=== PATIENT | male | born 1985 | race Caucasian/White ===

== ENCOUNTER 2018-02-17 00:46 | Emergency (ER) | payer OTHER ==
[2018-02-17 01:28] LABS: PLATELET COUNT 226 10^3/uL (150-400)
--- NOTE | 2018-02-17 01:31 | EDPHY ---
H & P Stated Complaint: DIZZINESS PASSED OUT AFTER SMOKING SOME MJ,WAS ADJUSTING NECK Time Seen by Provider: 02/17/18 00:57 HPI/ROS: HPI The patient presents with an episode of ALOC which occurred just prior to arrival. The patient was smoking marijuana and cigarettes tonight. He was sitting outside. He stood to go inside and experience some neck pain. He then began to feel dizzy and lost consciousness. He was diaphoretic 1st though now is feeling much better. He has had 1 prior fainting episode in his life which occurred when he saw blood. He says he has had neck pain for the last several days and has an appointment with a chiropractor. He thinks he slept funny on his neck. The pain is aching, left-sided, worse with movement of his neck. He does not have any numbness tingling or weakness of his hands.. REVIEW OF SYSTEMS 10 systems were reviewed and negative with the exception of the elements mentioned in the history of present illness. PMHx: Anxiety Soc Hx: Marijuana use PHYSICAL General Appearance: Alert, no distress Eyes: Pupils equal and round no pallor or injection ENT, Mouth: Mucous membranes moist Respiratory: There are no retractions, lungs are clear to auscultation Cardiovascular: Regular rate and rhythm , no murmur Gastrointestinal: Abdomen is soft and non-tender, no masses, bowel sounds normal Neurological: A&O, moves all extremities Skin: Warm and dry, no rashes Musculoskeletal: Neck is supple non tender Extremities: symmetrical, full range of motion Psychiatric: Patient is oriented X 3, there is no agitation Source: Patient Exam Limitations: No limitations - Personal History Current Tetanus/Diphtheria Vaccine: Yes Current Tetanus Diphtheria and Acellular Pertussis (TDAP): Yes - Medical/Surgical History Hx Asthma: No Hx Chronic Respiratory Disease: No Hx Diabetes: No Hx Cardiac Disease: No Hx Renal Disease: No Hx Cirrhosis: No Hx Alcoholism: No Hx HIV/AIDS: No Hx Splenectomy or Spleen Trauma: No Other PMH: ANXIETY - Social History Smoking Status: Current every day smoker Constitutional: Initial Vital Signs Temperature (C) 36.7 C 02/17/18 00:47 Heart Rate 68 02/17/18 00:47 Respiratory Rate 18 02/17/18 00:47 Blood Pressure 97/63 L 02/17/18 00:47 O2 Sat (%) 94 02/17/18 00:47 O2 Delivery Mode Room Air Allergies/Adverse Reactions: No Known Allergies Allergy (Unverified 02/17/18 00:53) Home Medications: Medication Instructions Recorded Propranolol HCl [Propranolol HCl 10 mg PO 02/17/18 ER] Medical Decision Making - Diagnostics EKG Interpretation: EKG: Complete interpretation has been separately recorded in the [facility] archive. Summary impression: Normal sinus rhythm with delta wave present in QRS complex Differential Diagnosis: 32-year-old healthy male with history of anxiety presents with fainting episode which occurred just prior to arrival. Now he feels well with normal vital signs. Episode occurred in setting of neck pain and smoking marijuana. He did not have any palpitations, shortness of breath, chest pain. In the emergency department, EKG was obtained which raises suspicion for WPW because of delta wave present in his QRS complexes. On the monitoring manager he maintained a normal sinus rhythms throughout his stay. I consulted with Dr. Emmanuel Oseguera of Cardiology. He recommends close outpatient follow-up. We agree that the patient's symptoms are more consistent with a vasovagal event then an arrhythmia related to WP W. I have explained the diagnosis to the patient. He is able to follow up with Cardiology. As far has is neck pain, I do feel he is suffering from cervical strain. He does not have any midline tenderness or neurologic deficits. I have encouraged him to use ibuprofen and Tylenol. I have given him information for primary care. He will be discharged from the emergency department. - Data Points Laboratory Results: Laboratory Results 02/17/18 01:09 02/17/18 01:09 02/17/18 02/17/18 01:09 01:09 WBC 13.93 10^3/uL H 10^3/uL (3.80-9.50) RBC 5.29 10^6/uL 10^6/uL (4.40-6.38) Hgb 15.5 g/dL g/dL (13.7-17.5) Hct 44.7 % % (40.0-51.0) MCV 84.5 fL fL (81.5-99.8) MCH 29.3 pg pg (27.9-34.1) MCHC 34.7 g/dL g/dL (32.4-36.7) RDW 12.2 % % (11.5-15.2) Plt Count 226 10^3/uL 10^3/uL (150-400) MPV 9.6 fL fL (8.7-11.7) Neut % (Auto) 57.0 % % (39.3-74.2) Lymph % (Auto) 34.6 % % (15.0-45.0) Riley % (Auto) 7.2 % % (4.5-13.0) Eos % (Auto) 0.3 % L % (0.6-7.6) Baso % (Auto) 0.5 % % (0.3-1.7) Nucleat RBC Rel Count 0.0 % % (0.0-0.2) Absolute Neuts (auto) 7.95 10^3/uL H 10^3/uL (1.70-6.50) Absolute Lymphs (auto) 4.82 10^3/uL H 10^3/uL (1.00-3.00) Absolute Monos (auto) 1.00 10^3/uL H 10^3/uL (0.30-0.80) Absolute Eos (auto) 0.04 10^3/uL 10^3/uL (0.03-0.40) Absolute Basos (auto) 0.07 10^3/uL 10^3/uL (0.02-0.10) Absolute Nucleated RBC 0.00 10^3/uL 10^3/uL (0-0.01) Immature Gran % 0.4 % % (0.0-1.1) Immature Gran # 0.05 10^3/uL 10^3/uL (0.00-0.10) Sodium 139 mEq/L mEq/L (135-145) Potassium 4.0 mEq/L mEq/L (3.3-5.0) Chloride 101 mEq/L mEq/L (97-110) Carbon Dioxide 26 mEq/l mEq/l (22-31) Anion Gap 12 mEq/L mEq/L (8-16) BUN 16 mg/dL mg/dL (7-23) Creatinine 0.9 mg/dL mg/dL (0.7-1.3) Estimated GFR > 60 Glucose 117 mg/dL H mg/dL (70-100) Calcium 9.8 mg/dL mg/dL (8.5-10.4) Departure - Departure Disposition: Home, Routine, Self-Care Clinical Impression: WPW (Cgkfa-Wehkgmibb-Gatvu syndrome), Marijuana use Syncope Qualifiers: Syncope type: unspecified Qualified Code(s): R55 - Syncope and collapse Cervical strain Qualifiers: Encounter type: initial encounter Qualified Code(s): S16.1XXA - Strain of muscle, fascia and tendon at neck level, initial encounter Condition: Good Instructions: Jddin-Ebmdpxoen-Tqkgq Syndrome (ED) Additional Instructions: I recommend that you get a heart rate monitor to check your heart rate if your feeling unwell. I have discussed your case with Dr. Emmanuel Oseguera of Cardiology. I recommend you call his office in the morning to arrange for a follow-up appointment. Referrals: Emmanuel Oseguera MD [Medical Doctor] - As per Instructions Gopal Humphries MD [[facility] [place]] - As per Instructions
[2018-02-17 02:24] VITALS: BP 103/64
--- NOTE | 2018-02-17 23:27 | CPEKG ---
Test Reason : OPEN Blood Pressure : / mmHG Vent. Rate : 056 BPM Atrial Rate : 056 BPM P-R Int : 081 ms QRS Dur : 101 ms QT Int : 426 ms P-R-T Axes : 048 020 096 degrees QTc Int : 412 ms Sinus rhythm Ventricular preexcitation(WPW) Confirmed by Iraida Villaseñor ([id number]) on 02/17/2018 11:27:22 PM Referred By: Confirmed By:Iraida Villaseñor
== END 2018-02-17 02:24 | disposition home or self-care (01) ==
DX: I45.6 Pre-excitation syndrome (principal); R55 Syncope and collapse; S16.1XXA Strain of muscle, fascia and tendon at neck level, initial encounter; F12.90 Cannabis use, unspecified, uncomplicated; X58.XXXA Exposure to other specified factors, initial encounter; Y99.8 Other external cause status